=== PATIENT | male | born 1980 | race Caucasian/White ===

== ENCOUNTER 2024-01-28 11:18 | Emergency (ER) | payer OTHER, SELFPAY ==
[2024-01-28 11:20] VITALS: BP 141/91; PULSE 102; RESP 23; TEMP 36.6; O2SAT 94; BMI 34.0
--- NOTE | 2024-01-28 11:33 | EDS_ITS ---
HPI History of Present Illness Chief Complaint: Chest Pain Informant: patient Onset/Context/Timing Onset: Today and - (45 minutes ago) Activity at onset: sudden and rest Timing: Continuous Quality: Positive for Burning and Sharp Location: Substernal and Left Parasternal Worsened By: Breathing Relieved By: Nothing Associated Symptoms: Positive for Dyspnea, Cough and Fever; Negative for Nausea, Vomiting, Diaphoresis, Lightheadedness, Acid Reflux or Palpitations Narrative Narrative: Patient presents with chest pain that began approximately 45 minutes prior to arrival. Patient states it began at rest. Patient states that has been constant. Patient describes it as sharp and burning. Patient states it is over the substernal and left parasternal area. Patient states it is worse with deep breathing. Patient states nothing seems to help with it. Patient admits to some shortness of breath. Patient also admits to recent cough and fever. Patient states he is on amoxicillin and doxycycline for presumptive pneumonia. Patient states this was prescribed earlier this week at the urgent care. Patient states he was told that if it does not get better he should come to the emergency department. PFSH PFSH Medical History no medical history no medical history Home Medications naproxen 500 mg tablet 500 mg PO BID #20 tabs 05/12/16 [Rx Last Taken Unknown] Allergy/AdvReac Type Severity Reaction Status Date / Time No Known Allergies Allergy Verified 05/12/16 20:56 Surgical History Hx of nasal septoplasty Social History Smoking Status: Never smoker ROS ROS ED Constitutional Constitutional ED: Reports fever(s); Denies chills Eyes Eyes: Denies blurry vision or change in vision ENT ENT ED: Denies rhinorrhea or sore throat Cardiovascular Cardiovascular: Reports chest pain; Denies palpitations Respiratory/Chest Respiratory/Chest: Reports dyspnea; Denies cough Gastrointestinal Gastrointestinal: Reports nausea; Denies abdominal pain or vomiting Genitourinary Genitourinary ED: Denies dysuria or hematuria Musculoskeletal Musculoskeletal: Denies back pain or neck pain Integumentary Denies abscess or rash Neurologic Neurologic: Reports headache(s); Denies weakness Allergic/Immunologic Allergic/Immunologic ED: Denies mouth swelling or urticaria EXAM Physical Exam Const Vital Signs: 01/28/24 11:20 01/28/24 11:24 01/28/24 12:11 Temperature 97.8 F Temperature Source Oral Pulse Rate 102 H 91 Respiratory Rate 23 H Respiratory Effort Normal Non-Labored Blood Pressure 141/91 H 135/89 H Blood Pressure Mean 107 Pulse Ox 94 Oxygen Delivery Method Room Air Oxygen Flow Rate (L/min) 01/28/24 12:19 01/28/24 12:19 01/28/24 13:21 Temperature Temperature Source Pulse Rate 107 H 84 Respiratory Rate 17 17 Respiratory Effort Blood Pressure 123/86 H 121/83 H Blood Pressure Mean 98 95 Pulse Ox 96 94 93 Oxygen Delivery Method Nasal Cannula Nasal Cannula Room Air Oxygen Flow Rate (L/min) 2 2 Positive well nourished and well developed General Appearance ED: well developed and NAD HEENT Reports moist mucous membranes Neck supple and no JVD Chest Wall palpation of chest normal Resp normal respiratory effort and clear to auscultation bilaterally Cardio regular rate and regular rhythm GI soft to palpation, non-tender and non-distended Neuro oriented x3, CN's II-XII intact bilaterally and no sensory deficits noted Sensorium / Orientation: awake and alert Motor Exam: strength 5/5 throughout Psych mental status grossly normal Heart Score History: Moderately Suspicious ECG: Normal Age: </= 45 years Risk Factors: No Risk Factors Score: 1 MDM MDM MDM Narrative Medical decision making narrative: Differential diagnosis includes cardiac dysrhythmia, cardiac ischemia, pulmonary embolism, pneumonia, and musculoskeletal pain. EKG will be obtained to assess for cardiac dysrhythmia and cardiac ischemia. CBC will be obtained to assess for leukocytosis and anemia. Basic metabolic profile will be obtained to assess for electrolyte abnormality and renal function. D-dimer will be obtained to assess for pulmonary embolism. High-sensitivity troponin will be obtained to assess for cardiac ischemia. 2-hour repeat high-sensitivity troponin will be obtained to assess for ongoing cardiac ischemia. Lab Data Attestation: I reviewed the patient's lab results. Lab results narrative: CBC was reviewed and was within normal limits. Basic metabolic profile was reviewed and was within normal limits. Initial high-sensitivity troponin was reviewed and was normal at 5. D-dimer was reviewed and was elevated at 1.07. 2-hour repeat high-sensitivity troponin was reviewed and was normal at 5. Labs: Laboratory Results - last 24 hr 01/28/24 01/28/24 11:30 14:10 WBC 9.6 RBC 4.90 Hgb 14.9 Hct 42.7 MCV 87.1 MCH 30.4 MCHC 34.9 RDW Std Deviation 38.7 RDW Coeff of Will 12.0 Plt Count 248 MPV 9.0 Immature Gran % (Auto) 0.800 Neut % (Auto) 65.4 Lymph % (Auto) 21.2 [place] % (Auto) 10.9 H Eos % (Auto) 1.4 Baso % (Auto) 0.3 Absolute Neuts (auto) 6.3 Absolute Lymphs (auto) 2.02 Nucleated RBC % 0 D-Dimer Quant (PE/DVT) 1.07 H* Sodium 134 L Potassium 3.8 Chloride 102 Carbon Dioxide 25.0 Anion Gap 7 BUN 12 Creatinine 0.87 Estim Creat Clear Calc 130.36 Est GFR (MDRD) Af Amer 123 Est GFR (MDRD) Non-Af 102 BUN/Creatinine Ratio 13.8 Glucose 127 H Calcium 8.7 Troponin I High Sens 5 5 Radiography Diagnostic Testing: Clinical Impression(s) from Imaging Studies Chest CTA 01/28/24 12:44 IMPRESSION: 1. No evidence of pulmonary embolism. 2. Mediastinal and bilateral hilar adenopathy. 3. Numerous small pulmonary nodules concerning for metastases. 4. Splenomegaly. Electronically Signed: Singh Hubbard MD at 13:39 EDT , CTA of the chest was obtained. There is no evidence of pulmonary embolism. There is mediastinal and hilar adenopathy. There are small pulmonary nodules. This was interpreted by the radiologist was also independently reviewed by myself. EKG Initial EKG: Attestation: I personally reviewed and interpreted this EKG as follows: Interpretation: No Acute Injury Pattern and Sinus Tachycardia (101) Comments: EKG was obtained. On my independent interpretation, it showed a sinus tachycardia with a rate of 101. SC interval, QRS interval, and QTc inte rvals were all normal. Ethel was normal. There are no acute ST or T wave changes. Prior EKG tracings: not available for review Prior: No Prior Treatment and Re-Evaluation :: Patient was given aspirin. The patient was advised of his findings. Patient w as advised that the pulmonary nodules will need further evaluation by his primary care physician. Patient was feeling better on reevaluation. Patient was instructed to follow-up with his primary care physician in 3 to 5 days. Patient understood and was agreeable with the plan. All questions were answered. Discharge Plan Triage Chief Complaint: Chest Pain ED Provider: Carlito Quintanilla Dx/Rx/DC Orders Clinical Impression: Elevated blood pressure reading, Chest pain Instructions: ED Chest Pain, Uncertain Cause Prescriptions: No Action naproxen 500 MG tablet 500 mg PO BID Qty: 20 0RF Primary Care Provider: Brando Sauer Referrals: Brando Sauer DO [Primary Care Provider] - 3-5 Days Disposition Disposition: Home, Self Care
--- NOTE | 2024-01-28 11:51 | EKG12_ITS ---
Test Reason : CP Blood Pressure : / mmHG Vent. Rate : 101 BPM Atrial Rate : 101 BPM P-R Int : 144 ms QRS Dur : 092 ms QT Int : 344 ms P-R-T Axes : 042 021 002 degrees QTc Int : 446 ms Sinus tachycardia Otherwise normal ECG Confirmed by Heriberto Black ([id number]), managing editor LATONYA JONES ([id number]) on 01/30/2024 11:09:19 AM Referred By: Confirmed By:Heriberto Black
--- NOTE | 2024-01-28 11:55 | NURSING ---
NO OLD EKGS
[2024-01-28 11:58] LABS: Absolute Lymphocyte Count 2.02 X10^3/uL (0.83-4.51); Absolute Neutrophil Count 6.3 X10^3/uL (2.0-7.7); Basophil# 0.03 X10^3/uL; Basophil% 0.3 % (0-1); Eosinophil# 0.13 X10^3/uL; Eosinophils% 1.4 % (0-5); Hematocrit 42.7 % (40-54); Hemoglobin 14.9 g/dL (13.0-16.5); Lymphocyte # 2.02 X10^3/ul (0.83-4.51); Lymphocyte % 21.2 % (19-41); Mean Corp Hgb Conc 34.9 g/dL (32-36); Mean Corpuscular Hgb 30.4 pg (27.0-32.0); Mean Corpuscular Volume 87.1 fL (80-94); Monocyte# 1.04 X10^3/uL; Monocyte% 10.9 % (0-10); NRBC Flagged by Analyzer 0 % (0-5); Neutrophil # 6.25 X10^3/uL (2.7-7.7); Neutrophil % 65.4 % (47-70); Platelet Count 248 K/mm3 (150-450); RBC Distribution Width SD 38.7 fl (35.1-43.9); White Blood Count 9.6 K/mm3 (4.4-11.0)
[2024-01-28 12:11] VITALS: BP 135/89; PULSE 91
[2024-01-28] MEDS: Aspirin 81 MG TAB.CHEW 324 MG PO (12:11)
[2024-01-28] MEDS: Nitroglycerin SL (ED/IMG/CATH) 0.4 MG TABLET SL (12:11)
[2024-01-28 12:16] LABS: Anion Gap 7 (5-15); BUN 12 mg/dL (7-18); BUN/Creat Ratio 13.8 RATIO (10-20); Calcium,Total 8.7 mg/dL (8.5-10.1); Chloride 102 mmol/L (98-107); Creatinine, Serum 0.87 mg/dL (0.70-1.30); EST Glomerular Filtration Rate 102 mL/min (>60); Est Glom Filt Rate - Afr Amer 123 mL/min (>60); Estimated Creatinine Clearance 130.36 ml/min; Glucose 127 mg/dL (74-106); Potassium 3.8 mmol/L (3.5-5.1); Sodium Level 134 mmol/L (136-145); Troponin-I HS (w/2H Reflex) 5 pg/mL (3.0-78.0)
[2024-01-28 12:19] VITALS: BP 123/86; PULSE 107; RESP 17; O2SAT 94; O2SAT 96
--- NOTE | 2024-01-28 12:24 | NURSING ---
No improvement in chest discomfort following nitro, will hold additional doses.
[2024-01-28 12:40] LABS: D-Dimer Quantitative (DVT/PE) 1.07 FEU/ug/m (0.27-0.49)
--- NOTE | 2024-01-28 12:44 | CT_ITS ---
STUDY: CTA CHEST REASON FOR EXAM: Male, 43 years old. Elevated D-dimer RADIATION DOSAGE (If Supplied By Facility): CTDIvol = ( 13.43 ) mGy, DLP = ( 538.99 ) mGycm TECHNIQUE: The examination was performed with the intravenous administration of IV 100mL Isovue-370. Post-processing of the angiographic images was performed, with multiplanar reformation and 3D reconstruction. Individualized dose optimization techniques were used for this CT. COMPARISON: No relevant prior comparison study available FINDINGS: Normal enhancement of the main pulmonary artery and right and left pulmonary arteries. Normal enhancement of the bilateral peripheral pulmonary arteries. There is no demonstrated pulmonary embolism. Normal thoracic aorta and visualized great vessels. There is no demonstrated aortic dissection. Normal heart and pericardium. No definite coronary calcifications. Prominent subcarinal nodes. Bilateral hilar adenopathy larger on the right side. Normal visualized trachea and bronchi. Compressive atelectatic changes in both lower lobes. Numerous small pulmonary nodules scattered bilaterally. There are no pleural effusions. Normal chest wall structures. Unremarkable osseous structures. The visualized upper abdomen demonstrate splenomegaly. Spleen measures about [address]/CTA Chest W/WO Contrast IMPRESSION: 1. No evidence of pulmonary embolism. 2. Mediastinal and bilateral hilar adenopathy. 3. Numerous small pulmonary nodules concerning for metastases. 4. Splenomegaly. Electronically Signed: Singh Hubbard MD at 13:39 EDT ,
[2024-01-28 13:21] VITALS: BP 121/83; PULSE 84; RESP 17; O2SAT 93
[2024-01-28 13:56] LABS: Reflex Troponin-HS? (from REC) Y
[2024-01-28 14:32] LABS: Troponin-I HS 5 pg/mL (3.0-78.0)
[2024-01-28 15:00] VITALS: BP 130/76; PULSE 70; RESP 16; TEMP 36.7; O2SAT 93
== END 2024-01-28 15:41 | disposition home or self-care (01) ==
PROVIDERS: Emergency Provider Emergency Medicine; PCP Student in an Organized Health Care Education/Training Program; Visit Provider Emergency Medicine
DX: R07.9 Chest pain, unspecified (principal); R03.0 Elevated blood-pressure reading, without diagnosis of hypertension; R50.9 Fever, unspecified; R06.02 Shortness of breath
CPT/HCPCS: 71275; 80048; 84484; 85025; 85379; 93005; 99285; Q9967; A4216

== ENCOUNTER 2024-02-01 13:02 | Day surgery (SDC) | payer OTHER, SELFPAY ==
[2024-02-01] VITALS (7 sets, daily range): BP systolic 110–125; BP diastolic 76–79; PULSE 90–98; RESP 18–94; TEMP 36.5–37.7; O2SAT 90–94; BMI 32.5
--- NOTE | 2024-02-01 | FLU_PTH ---
PATIENT: GENIE JACKSON LOC: EN U#:[id number] AGE/SX: 43/M ROOM: RE02/01/[address]: Dr. Vikash Barker MD : 1980 BED: DIS: 02/01/2024 SPEC #: [id number] RECD: 02/01/24 17:09 STATUS: LORNA RADHA #: [id number] ZULY: 02/01/24 00:[address]: Vikash Barker V DEPT: CYTOLOGY RECD BY: Nessa Carrillo ENTERED: 02/02/24 12:06 SP TYPE: Fluid OTHR DR: Dr. Brando Sauer, DO Tissues: Bronchus of right lower lobe Procedures: Special Stain Group II Special Stain Group I Surgery Specimen Level IV AFB Stain (control) GMS Stain (control) Cytospin Fluid HEADER OPERATION: Bronchoscopy (MAC) with biopsy PRE-OP DIAGNOSIS: Dyspnea, Multiple nodules, Fever, Short of breath TISSUE SUBMITTED: See tree sheets DIAGNOSIS CYTOLOGY Bronchial Alveolar Lavage, Right Lower Lobe Lung (cytospin and cellblock): Negative for malignant cells. See comment. SJ/ 02/03/24 COMMENT Special stains for acid fast bacilli and fungi are negative for organisms; matched controls are appropriate. Please also make reference to corresponding surgical specimen ([id number]) Right middle lobe, biopsy with diagnosis of Bronchial mucosa tissue negative for malignancy. This case was with discussed with Dr. Barker on 02/03/24. Case has been reviewed in consultation with Dr. Alcantara who concurs with the above diagnosis. IDC:AM CYTOLOGY STUDY Slides are reviewed. CYTOLOGY GROSS Received is 55 ml of red-cloudy mucoidy fluid labeled with the patient's name and and designated per the requisition as BAL RLL. Submitted for cytology preparation including cell block. mr 02/02/24 TC:5 CPT: 99887,35749R3,41810
--- NOTE | 2024-02-01 | LUNG_PTH ---
PATIENT: GENIE JACKSON LOC: EN U#:[id number] AGE/SX: 43/M ROOM: RE02/01/[address]: Dr. Vikash Barker MD : 1980 BED: DIS: 02/01/2024 SPEC #: [id number] RECD: 02/01/24 17:09 STATUS: LORNA RADHA #: [id number] ZULY: 02/01/24 00:[address]: Vikash Barker V DEPT: SURGICAL PATHOLOGY RECD BY: Nessa Carrillo ENTERED: 02/02/24 12:07 SP TYPE: LUNG BX OTHR DR: Dr. Brando Sauer, DO Tissues: Lung, NOS Procedures: Special Stain Group I Surgery Specimen Level IV AFB Stain (control) GMS Stain (control) HEADER OPERATION: Bronchoscopy (MAC) with biopsy PRE-OP DIAGNOSIS: Dyspnea, Multiple nodule, Fever, Short of breath TISSUE SUBMITTED: See tree sheets MICROSCOPIC DIAGNOSIS Right middle lobe, biopsy: Fragments of bronchial mucosa tissue with minimal chronic inflammation. Negative for malignancy. See comment. / 02/03/24 COMMENT Granulomas are not identified. Special stains for acid fast bacilli and fungi are negative for organisms; matched controls are appropriate. Correlation with clinical, laboratory, radiologic findings and appropriate follow up are necessary. This case was discussed with Dr. Barker on 02/03/24. Case has been reviewed in consultation with Dr. Alcantara who concurs with the above diagnosis. IDC:AM MICROSCOPIC DESCRIPTION Slides are reviewed. GROSS DESCRIPTION Received in fixative is one container labeled with the patient's name and designated Right middle lobe biopsy. The specimen consists of multiple irregular fragments of light garay soft tissue that in aggregate measure 1.0 x 0.2 x 0.1 cm. The specimen is totally submitted in one cassette. [facility] 02/02/24 TC:3 CPT: 60566,58269W4
[2024-02-01] MEDS: Lactated Ringers 1,000 ML 15 ML IV (14:02)
[2024-02-01] MEDS: Phenylephrine 0.25% 15 ML NASAL.SRY 15 SPRAY NASAL (16:34)
[2024-02-01] MEDS: Lidocaine Jelly 2% 20 ML Syringe (URO-JET) 1 APPLIC (16:35)
[2024-02-01] MEDS: Lidocaine 2% (5ml sdv) 5 ML VIAL.MPF ×4 (16:36→16:39)
--- NOTE | 2024-02-01 16:57 | OP.BRONCH_ITS ---
Patient Name: Ishan Ordonez Procedure Date: 02/01/2024 2:36 PM Date of : 1980 Age: 43 Procedure: Bronchoscopy Indications: Suspicious lung lesion Providers: Vikash Barker MD Medicines: Lidocaine applied to nares and subglottic space, Lidocaine 2% applied to cords 12 mL Complications: No immediate complications Procedure: Pre-Anesthesia Assessment: - A History and Physical has been performed. The patient's medications, allergies and sensitivities have been reviewed. - The risks and benefits of the procedure and the sedation options and risks were discussed with the patient. All questions were answered and informed consent was obtained. - Pre-procedure physical examination revealed no contraindications to sedation. After I obtained informed consent, the scope was passed under direct vision. Throughout the procedure, the patient's blood pressure, pulse, and oxygen saturations were monitored continuously. The bronchoscope was introduced through the right nostril and advanced to the tracheobronchial tree. Moderate Sedation: An independent trained observer was present and continuously monitored the patient. Findings: The bronchoscope was advanced until wedged at the desired location for bronchoalveolar lavage. BAL was performed in the RLL lateral basal segment (B9) of the lung and sent for cell count, bacterial culture, viral smears & culture, and fungal & AFB analysis and cytology and fungal staining. 160 mL of fluid were instilled. 60 mL were returned. The return was blood-tinged. There were no mucoid plugs in the return fluid. Multiple specimens were obtained, and each sent for analysis. Transbronchial biopsies of a nodule were performed in the lateral segment of the right middle lobe using forceps and sent for histopathology examination. The procedure was guided by fluoroscopy. Transbronchial biopsy technique was selected because the sampling site was not accessible using standard endoscopic (bronchoscopic) techniques. Three biopsy passes were performed. Three biopsy samples were obtained. Impression: - Suspicious lung lesion - Bronchoalveolar lavage was performed. - Transbronchial lung biopsies were performed. - The airway examination was normal. Recommendation: - Await test results. Procedure Code(s): --- Professional --- 94422, Bronchoscopy, rigid or flexible, including fluoroscopic guidance, when performed; with transbronchial lung biopsy(s), single lobe 21072, Bronchoscopy, rigid or flexible, including fluoroscopic guidance, when performed; with bronchial alveolar lavage Diagnosis Code(s): --- Professional --- R91.8, Other nonspecific abnormal finding of lung field CPT copyright 2021 [employer]. All rights reserved. The codes documented in this report are preliminary and upon transportation coordinator review may be revised to meet current compliance requirements. MD Vikash Dunn MD 02/01/2024 4:56:57 PM This report has been signed electronically. Number of Addenda: 0 Note Initiated On: 02/01/2024 2:36 PM
[2024-02-02 08:37] LABS: Cytology, Washings SEE PATHOLOGY REPORT
[2024-02-09 12:09] LABS: Absolute CD4 Helper 892 /uL (359-1519); Angiotensin Convert Enzyme 56 U/L (14-82); Basophils (Absolute) 0.1 x10E3/uL (0.0-0.2); Eosinophils 2 % (Not Estab.); Eosinophils (Absolute) 0.3 x10E3/uL (0.0-0.4); Hematocrit 44.3 % (37.5-51.0); Hemoglobin 14.4 g/dL (13.0-17.7); Immature Granulocytes 1 % (Not Estab.); Immature Granulocytes Absolute 0.1 x10E3/uL (0.0-0.1); Lymphs 17 % (Not Estab.); MCH 29.7 pg (26.6-33.0); MCHC 32.5 g/dL (31.5-35.7); MCV 91 fL (79-97); Monocytes 9 % (Not Estab.); Monocytes (Absolute) 1.1 x10E3/uL (0.1-0.9); Neutrophils 70 % (Not Estab.); Neutrophils (Absolute) 8.4 x10E3/uL (1.4-7.0); Percent % CD4 Pos. Lymph. 44.6 % (30.8-58.5); Platelets 287 x10E3/uL (150-450); QNTFERON TB Mitogen Value > 10.00 IU/mL (.); QNTFERON TB Nil Value 0.09 IU/mL (.); QNTFERON TB1+ Ag Value 0.09 IU/mL (.); QNTFERON TB2+ Ag Value 0.07 IU/mL (.); QNTIFERON TB Positive Criteria Negative (Negative); RBC Count 4.85 x10E6/uL (4.14-5.80); RDW 12.6 % (11.6-15.4); URINE HISTOPLASMA ANTIGEN Negative (<0.5 ng/mL); WBC Count 11.9 x10E3/uL (3.4-10.8)
== END 2024-02-01 17:45 | disposition home or self-care (01) ==
LOC: EN 13:24 → AC 13:25
PROVIDERS: PCP Student in an Organized Health Care Education/Training Program; Referring Provider Internal Medicine Pulmonary Disease; Visit Provider Internal Medicine Pulmonary Disease
PROC: 0BJ08ZZ Inspection of Tracheobronchial Tree, Via Natural or Artificial Opening Endoscopic (ICD-10-PCS; CPT 31622; principal; 2024-02-01 15:45)
DX: J98.4 Other disorders of lung (principal); R16.1 Splenomegaly, not elsewhere classified; R07.1 Chest pain on breathing
CPT/HCPCS: 31628; 31624; 36415; 76000; 82164; 86361; 86480; 87015; 87070; 87101; 87116; 87205; 87206; 87278; 87385; 87449; 88108; 88305; 88312; 88313; J7120; J2405